=== PATIENT | male | born 1980 | race Caucasian/White ===

== ENCOUNTER 2017-12-28 19:58 | Emergency (ER) | payer BC ==
[~2017-12-28] VITALS: Ht 175.3 cm; Wt 90.8 kg
[2017-12-28] MEDS ORDERED: LISINOPRIL20 MG PO (20:16)
[2017-12-28] MEDS ORDERED: PX OMEPRAZOLE20 MG PO (20:17)
[2017-12-28 21:23] LABS: URINE BILIRUBIN - DIPSTICK NEGATIVE (NEGATIVE); URINE BLOOD DIPSTICK NEGATIVE (NEGATIVE); URINE COLOR YELLOW; URINE GLUCOSE - DIPSTICK NEGATIVE (NEGATIVE); URINE KETONE NEGATIVE (NEGATIVE); URINE LEUK ESTERASE NEGATIVE (NEGATIVE); URINE NITRITE - DIPSTICK NEGATIVE (Negative); URINE PROTEIN - DIPSTICK NEGATIVE (NEG-TRACE); URINE SPECIFIC GRAVITY >=1.030; URINE UROBILINOGEN - DIPSTICK 0.2 E.U./dL (0.2)
[2017-12-28 21:24] LABS: URINE CLARITY CLEAR
[2017-12-28 21:25] LABS: HEMOGLOBIN 14.3 g/dl (14.0-18.0); IMMATURE GRANULOCYTES 0.7 % (0.0-1.0); MEAN CELL VOLUME 84.2 fL CALC (80.0-100.0); MEAN CORPUSCULAR HGB 28.7 pG CALC (26.0-32.0); NEUT# 7.19 thou/uL (1.82-7.42); RED BLOOD COUNT 4.99 mill/uL (4.70-6.10); RED CELL DISTRI WIDTH 12.5 % (11.5-15.5)
[2017-12-28 21:37] LABS: ALBUMIN 4.1 g/dL (3.2-5.0); ALKALINE PHOSPHATASE 110 u/l (38-126); ANION GAP 14 (6-22 (CALC)); BILIRUBIN, TOTAL 0.2 mg/dL (0.0-1.4); BUN 11 mg/dL (9-20); BUN/CREATININE RATIO 14 (12-20 (CALC)); CARBON DIOXIDE 23 mmol/l (22-30); CHLORIDE 104 mmol/l (95-108); CREATININE 0.8 mg/dL (0.7-1.3); GFR > 60 ML/MIN (>=60 (CALC)); GFR FOR AFR.AMER. > 60 ML/MIN (>=60 (CALC)); SGOT/AST 29 u/l (17-59); SGPT/ALT 46 u/l (21-72); SODIUM 137 mmol/l (137-146); TOTAL PROTEIN 7.3 g/dL (6.3-8.2)
[2017-12-28 21:56] VITALS: BP 138/94
== END 2017-12-28 21:57 | disposition home or self-care (01) | DRG 395 ==
LOC: ED 19:58
PROVIDERS: Emergency Medicine
DX: K46.9 Unspecified abdominal hernia without obstruction or gangrene (principal); K59.00 Constipation, unspecified; R10.33 Periumbilical pain

== ENCOUNTER 2018-03-18 19:24 | Emergency (ER) | payer BC ==
[~2018-03-18] VITALS: Ht 175.3 cm; Wt 88.2 kg
[~2018-03-18 19:24] MED LIST: LISINOPRIL20 MG PO; PX OMEPRAZOLE20 MG PO
[2018-03-18 20:29] LABS: HEMATOCRIT 41.6 % (39.0-50.0); HEMOGLOBIN 14.3 g/dl (14.0-18.0); IMMATURE GRANULOCYTES 0.4 % (0.0-5.0); MEAN CELL VOLUME 84.6 fL CALC (80.0-100.0); MEAN CORPUSCULAR HGB 29.1 pG CALC (26.0-32.0); MEAN CORPUSCULAR HGB CONC 34.4 g/L CALC (32.0-36.0); NEUT# 8.07 thou/uL (1.82-7.42); RED BLOOD COUNT 4.92 mill/uL (4.70-6.10); RED CELL DISTRI WIDTH 12.3 % (11.5-15.5)
[2018-03-18 20:47] LABS: ALBUMIN 4.1 g/dL (3.2-5.0); ALKALINE PHOSPHATASE 102 u/l (38-126); ANION GAP 16 (6-22 (CALC)); BILIRUBIN, TOTAL 0.4 mg/dL (0.0-1.4); BUN 10 mg/dL (9-20); BUN/CREATININE RATIO 13 (12-20 (CALC)); CARBON DIOXIDE 24 mmol/l (22-30); CHLORIDE 107 mmol/l (95-108); CREATININE 0.8 mg/dL (0.7-1.3); GFR > 60 ML/MIN (>=60 (CALC)); GFR FOR AFR.AMER. > 60 ML/MIN (>=60 (CALC)); POTASSIUM 3.7 mmol/l (3.5-5.1); SGOT/AST 22 u/l (17-59); SGPT/ALT 33 u/l (21-72); SODIUM 142 mmol/l (137-146); TOTAL PROTEIN 7.2 g/dL (6.3-8.2)
[2018-03-18 22:32] LABS: URINE BILIRUBIN - DIPSTICK NEGATIVE (NEGATIVE); URINE BLOOD DIPSTICK LARGE (NEGATIVE); URINE COLOR YELLOW; URINE GLUCOSE - DIPSTICK NEGATIVE (NEGATIVE); URINE KETONE NEGATIVE (NEGATIVE); URINE LEUK ESTERASE NEGATIVE (NEGATIVE); URINE NITRITE - DIPSTICK NEGATIVE (Negative); URINE PROTEIN - DIPSTICK TRACE mg/dL (NEG-TRACE); URINE SPECIFIC GRAVITY >=1.030
[2018-03-18 22:36] LABS: URINE CLARITY SL CLOUDY
[2018-03-18 22:46] LABS: URINE BACTERIA FEW hpf; URINE MUCUS MODERATE hpf (NONE-FEW); URINE RBC 50-100 RBC/hpf (0-5); URINE SQUAMOUS EPITHELIAL CELL MODERATE EPI/hpf (0-FEW)
[2018-03-18] MEDS ORDERED: HYTRIN5 MG/CAP PO (23:02)
[2018-03-18] MEDS ORDERED: BACTRIM DS1 TAB PO (23:02)
[2018-03-18] MEDS ORDERED: ACETAMINOPHEN500 M1 PO (23:02)
[2018-03-18 23:18] VITALS: BP 156/97
== END 2018-03-18 23:18 | disposition home or self-care (01) | DRG 728 ==
LOC: ED 19:24
PROVIDERS: Family Medicine
DX: N41.9 Inflammatory disease of prostate, unspecified (principal); Q85.8 Other phakomatoses, not elsewhere classified; N40.0 Benign prostatic hyperplasia without lower urinary tract symptoms; I10 Essential (primary) hypertension; K21.9 Gastro-esophageal reflux disease without esophagitis